=== PATIENT | male | born 1960 | race American Indian/Alaskan Native ===

== ENCOUNTER 2018-06-09 10:51 | Emergency (ER) | payer MEDICAID, OTHER ==
[2018-06-09 10:57] VITALS: RESP 18; TEMP 97.4; O2SAT 100; BMI 28.7
[2018-06-09 12:57] LABS: BASO % 0.4 % (0.0-2.0); EOS # 0.2 K/uL (0.0-0.7); EOS % 2.6 % (0.0-4.0); HEMOGLOBIN 10.7 g/dL (12.0-18.0); LYMPH % 30.9 % (20.0-40.0); MEAN CELL VOLUME 87.3 fl (80.0-94.0); MEAN CORPUSCULAR HEMOGLOBIN 28.6 pg (27.0-31.0); MEAN CORPUSCULAR HGB CONC 32.8 g/dL (33.0-37.0); MEAN PLATELET VOLUME 8.2 fl (7.2-11.7); MONO # 0.5 K/uL (0.0-0.8); MONO % 8.3 % (0.0-10.0); NEUT # 3.7 K/uL (1.8-7.0); NEUT % 57.8 % (50.0-75.0); NRBC % 0.1 % (0.0-0.0); RBC 3.73 Mil/uL (4.40-5.90); RED CELL DISTRIBUTION WIDTH 15.3 % (11.5-14.5); WHITE BLOOD COUNT 6.4 K/uL (4.8-10.8)
[2018-06-09 14:10] LABS: ALB/GLOB RATIO 1.1 (1.0-2.1); ALBUMIN 3.9 g/dL (3.5-5.0); ALT/SGPT 18 U/L (21-72); AST/SGOT 20 U/L (17-59); BLOOD UREA NITROGEN 7 mg/dl (9-20); CALCIUM 9.4 mg/dL (8.4-10.2); GFR NON-AFRICAN AMERICAN > 60; LIPASE 63 U/L (23-300)
--- NOTE | 2018-06-09 15:14 | ED PDOC ---
HPI: General Adult Time Seen by Provider: 06/09/18 11:05 Chief Complaint (Nursing): Abdominal Pain Chief Complaint (Provider): g-tube removal History Per: Patient History/Exam Limitations: no limitations Onset/Duration Of Symptoms: Days Current Symptoms Are (Timing): Still Present Additional Complaint(s): 57 y/o male presents to the ED with requests to remove his G-tube. Patient is a poor historian but admits to being homeless. Patient states he no longer uses his g-tube. Patient is unclear as to where and why it was placed. PMD: no provider Past Medical History Reviewed: Historical Data, Nursing Documentation, Vital Signs Vital Signs: Last Vital Signs Temp 97.4 F L 06/09/18 10:57 Pulse 63 06/09/18 10:57 Resp 18 06/09/18 10:57 BP 149/91 H 06/09/18 10:57 Pulse Ox 100 06/09/18 10:57 - Medical History PMH: No Chronic Diseases - Surgical History Surgical History: No Surg Hx - Family History Family History: States: Unknown Family Hx - Home Medications Home Medications: Ambulatory Orders Medication Instructions Recorded Famotidine [Pepcid] 20 mg PO DAILY #20 tab 06/09/18 - Allergies Allergies/Adverse Reactions: Allergies Allergy/AdvReac Type Severity Reaction Status Date / Time No Known Allergies Allergy Verified 06/09/18 12:18 Review of Systems ROS Statement: Except As Marked, All Systems Reviewed And Found Negative Constitutional: Positive for: Other (g-tuber removal) Physical Exam - Reviewed Nursing Documentation Reviewed: Yes Vital Signs Reviewed: Yes - Physical Exam Appears: Positive for: No Acute Distress (but noted to have poor hygiene) Cardiovascular/Chest: Negative for: Tachycardia Respiratory: Positive for: Normal Breath Sounds. Negative for: Respiratory Distress Gastrointestinal/Abdominal: Positive for: Other (G0tube inplace without tenderness, erythema or discharge from site) Neurological/Psych: Positive for: Awake, Alert, Oriented (x3). Negative for: Motor/Sensory Deficits - Laboratory Results Result Diagrams: 06/09/18 12:45 06/09/18 13:18 Lab Results: Total Bilirubin 0.2 mg/dl (0.2-1.3) 06/09/18 13:18 AST 20 U/L (17-59) 06/09/18 13:18 ALT 18 U/L (21-72) L 06/09/18 13:18 Alkaline Phosphatase 92 U/L (38-126) 06/09/18 13:18 Total Protein 7.4 G/DL (6.3-8.2) 06/09/18 13:18 Albumin 3.9 g/dL (3.5-5.0) 06/09/18 13:18 Globulin 3.5 gm/dL (2.2-3.9) 06/09/18 13:18 Albumin/Globulin Ratio 1.1 (1.0-2.1) 06/09/18 13:18 Lipase 63 U/L (23-300) 06/09/18 13:18 - ECG O2 Sat by Pulse Oximetry: 100 (RA) Pulse Ox Interpretation: Normal Medical Decision Making Medical Decision Making: Time: 1217 Plan: -- EKG -- Alcohol Serum -- CMP -- Lipase -- CBC with Differentials Time: 145 Plan: -- Aspirin 300 mg PO Time: 1522 -- Labs reviewed with no acute abnormalities. Patient tolerated PO while in the ED. -- Patient requires further history to ascertain whether it is appropriate to remove G-Tube. Complain is not emergent. -- Patient will be referred to clinic for further follow up. Patient is stable for discharge while in the ER. Scribe Attestation: Documented by Ruby Carl, acting as a scribe Alex Marroquin DO. Provider Scribe Attestation: All medical record entries made by the Scribe were at my direction and personally dictated by me. I have reviewed the chart and agree that the record accurately reflects my personal performance of the history, physical exam, medical decision making, and the department course for this patient. I have also personally directed, reviewed, and agree with the discharge instructions and disposition. Disposition - Clinical Impression Clinical Impression: Abdominal discomfort, Gastrostomy tube in place - Patient ED Disposition Is Patient to be Admitted: No Counseled Patient/Family Regarding: Studies Performed, Diagnosis, Need For Followup - Disposition Referrals: [facility] [Outside] Disposition: Routine/Home Disposition Time: 15:22 Condition: STABLE Additional Instructions: Followup with clinic and GI doctor for further testing and possible removal of f eeding tube if no longer needed. Prescriptions: Famotidine [Pepcid] 20 mg PO DAILY #20 tab Instructions: Acute Abdomen (Belly Pain), Adult (DC), Gastrostomy, Permanent and Temporary (DC) Forms: [employer] (German)
--- NOTE | 2018-06-09 17:33 | CARD ---
APPROVED REPORT Date of service: 06/09/2018 EKG Measurement Heart [id number] <Conclusion> Normal sinus rhythm Normal ECG
[2018-06-09 19:53] VITALS: BP 142/83; PULSE 66
== END 2018-06-09 15:15 | disposition home or self-care (01) ==
LOC: H.ER 10:51
DX: R10.9 Unspecified abdominal pain (principal); Z59.0 Homelessness
CPT/HCPCS: 80053; 83690; 85025; 93005; 99283; G0480

== ENCOUNTER 2018-06-10 07:11 | Emergency (ER) | payer MEDICAID, OTHER ==
[2018-06-10 07:20] VITALS: BMI 29.5
[2018-06-10 07:23] VITALS: O2SAT 99
--- NOTE | 2018-06-10 07:34 | ED PDOC ---
HPI: Abdomen Time Seen by Provider: 06/10/18 07:13 Chief Complaint (Nursing): GI Problem Chief Complaint (Provider): GI Problem History Per: Patient History/Exam Limitations: no limitations Onset/Duration Of Symptoms: Days Current Symptoms Are (Timing): Still Present Additional Complaint(s): 57 y/o undomiciled male with a PMHx of HTN presents to the ED for evaluation of abdominal pain around G-Tube site, onset a couple of days ago. Patient describes pain as "painful". Patient is unclear as to where it was placed. When asked why it was placed, patient reported it was due to kidney failure a couple of months ago. Patient states he is currently eating normally and no longer need the G- tube, requesting it to be removed. Otherwise, patient denies any other surgerie s, nausea, vomiting, diarrhea and dysuria. Of note, patient presented to this ER yesterday for the same compliant where blood work was done which resulted negative. Patient was discharged home with instructions to follow up with the [facility]. PMD: no provider Past Medical History Reviewed: Historical Data, Nursing Documentation, Vital Signs Vital Signs: Last Vital Signs Temp 97.8 F 06/10/18 07:20 Pulse 102 H 06/10/18 07:20 Resp 17 06/10/18 07:20 BP 162/108 H 06/10/18 07:20 Pulse Ox 99 06/10/18 07:20 - Medical History PMH: HTN (sometimes takes medication) - Surgical History Other surgeries: feeding tube - Family History Family History: States: Unknown Family Hx - Living Arrangements Living Arrangements: Other (in senior care) - Social History Current smoker - smoking cessation education provided: No Alcohol: None Drugs: Denies - Home Medications Home Medications: Ambulatory Orders Medication Instructions Recorded Famotidine [Pepcid] 20 mg PO DAILY #20 tab 06/09/18 - Allergies Allergies/Adverse Reactions: Allergies Allergy/AdvReac Type Severity Reaction Status Date / Time No Known Allergies Allergy Verified 06/09/18 12:18 Review of Systems ROS Statement: Except As Marked, All Systems Reviewed And Found Negative Gastrointestinal: Positive for: Abdominal Pain (around G-tube site mild). Negative for: Nausea, Vomiting, Diarrhea Genitourinary Male: Positive for: Frequency, Incontinence. Negative for: Dysuria Physical Exam - Reviewed Nursing Documentation Reviewed: Yes Vital Signs Reviewed: Yes - Physical Exam Appears: Positive for: No Acute Distress (poor hygiene) Head Exam: Positive for: ATRAUMATIC, NORMOCEPHALIC Skin: Positive for: Normal Color, Warm, Dry Eye Exam: Positive for: Normal appearance, EOMI, PERRL Neck: Positive for: Normal, Painless ROM Cardiovascular/Chest: Positive for: Regular Rate, Rhythm. Negative for: Murmur Respiratory: Positive for: Normal Breath Sounds. Negative for: Respiratory Distress Gastrointestinal/Abdominal: Positive for: Soft, Tenderness (minimal tenderness around G-tube site.), Other (G-tube in place with no erythema, induration or fluctuance) Back: Positive for: Normal Inspection. Negative for: L CVA Tenderness, R CVA Tenderness, Vertebral Tenderness Extremity: Positive for: Normal ROM. Negative for: Deformity Neurological/Psych: Positive for: Awake, Alert, Oriented. Negative for: Motor/Sensory Deficits - ECG O2 Sat by Pulse Oximetry: 99 (RA) Pulse Ox Interpretation: Normal - CT Scan/US ct Other Rad Studies (CT/US): Read By Radiologist Other Rad Interpretation: no acute - Progress ED Course And Treament: 1034: Stable. AAOx3. Pain free. Sleeping through stay. Fu with pcp. Medical Decision Making Medical Decision Making: Time: 732 Impression: Abdominal Pain Plan: -- CT Abd/Pelvis w/o PO or IV Contrast Scribe Attestation: Documented by Ruby Carl, acting as a scribe Pierce Love MD. Provider Scribe Attestation: All medical record entries made by the Scribe were at my direction and personally dictated by me. I have reviewed the chart and agree that the record accurately reflects my personal performance of the history, physical exam, medical decision making, and the department course for this patient. I have also personally directed, reviewed, and agree with the discharge instructions and disposition. Disposition - Clinical Impression Clinical Impression: Abdominal pain, Feeding by G-tube - Patient ED Disposition Is Patient to be Admitted: No Counseled Patient/Family Regarding: Studies Performed, Diagnosis, Need For Followup - Disposition Referrals: [facility] [Outside] - 06/13/18 Disposition: Routine/Home Disposition Time: 10:35 Condition: STABLE Instructions: Stomach Ache and Stomach Upset, How to Care for Your PEG Tube
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
[2018-06-10 11:52] VITALS: BP 149/97; PULSE 99; RESP 18; TEMP 98
== END 2018-06-10 11:05 | disposition home or self-care (01) ==
LOC: H.ER 07:11
DX: R10.9 Unspecified abdominal pain (principal); Z43.1 Encounter for attention to gastrostomy; I10 Essential (primary) hypertension

== ENCOUNTER 2018-06-11 08:25 | Emergency (ER) | payer MEDICAID, OTHER ==
[2018-06-11 08:30] VITALS: BMI 30.1
[2018-06-11 09:58] LABS: URINE BILIRUBIN NEGATIVE (NEGATIVE); URINE BLOOD NEGATIVE (NEGATIVE); URINE CLARITY CLEAR (Clear); URINE COLOR STRAW (YELLOW); URINE GLUCOSE (UA) NEG (NEGATIVE); URINE LEUKOCYTE ESTERASE NEG Leu/uL (Negative); URINE PROTEIN NEGATIVE (NEGATIVE); URINE UROBILINOGEN 0.2-1.0 mg/dL (0.2-1.0)
[2018-06-11 10:22] VITALS: BP 139/106; PULSE 70; RESP 16; TEMP 97.5
[2018-06-11 10:24] VITALS: O2SAT 100
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
== END 2018-06-11 10:30 | disposition home or self-care (01) ==
LOC: H.ER 08:25
DX: R35.0 Frequency of micturition (principal); F17.200 Nicotine dependence, unspecified, uncomplicated; I10 Essential (primary) hypertension; J45.909 Unspecified asthma, uncomplicated

== ENCOUNTER 2018-06-18 07:15 | Emergency (ER) | payer SELFPAY ==
[2018-06-18 07:17] VITALS: BMI 30.4
[2018-06-18 07:19] VITALS: BP 150/97; PULSE 99; RESP 17; TEMP 98.2; O2SAT 97
--- NOTE | 2018-06-18 08:50 | ED PDOC ---
HPI: Back Time Seen by Provider: 06/18/18 07:26 Chief Complaint (Nursing): Back Pain Chief Complaint (Provider): back pain History Per: Patient History/Exam Limitations: no limitations Current Symptoms Are (Timing): Still Present Quality Of Discomfort: Unable To Describe Severity: Mild Previous Symptoms: Back Pain Associated Symptoms: None Exacerbating Factor(s): Movement, Standing Additional Complaint(s): 57yo male c/o low back pain ongoing for several months, denies urinary symptoms, fever, trauma or fall. Has PEG tube in place, again requesting it be removed, states was placed at [facility] because his kidneys were failing, unclear history. Eating PO now. Prior charts reviewed, recently seen again for abd discomfort, had CT abd pelv and labwork. Past Medical History Reviewed: Historical Data, Nursing Documentation, Vital Signs Vital Signs: Last Vital Signs Temp 98.2 F 06/18/18 07:17 Pulse 99 H 06/18/18 07:17 Resp 17 06/18/18 07:17 BP 150/97 H 06/18/18 07:17 Pulse Ox 97 06/18/18 07:17 - Medical History PMH: Asthma, HTN (sometimes takes medication) Denies: Chronic Kidney Disease - Surgical History Surgical History: Hernia Repair - Family History Family History: States: Unknown Family Hx - Living Arrangements Living Arrangements: Other - Home Medications Home Medications: Ambulatory Orders Medication Instructions Recorded Famotidine [Pepcid] 20 mg PO DAILY #20 tab 06/09/18 - Allergies Allergies/Adverse Reactions: Allergies Allergy/AdvReac Type Severity Reaction Status Date / Time No Known Allergies Allergy Verified 06/09/18 12:18 Review of Systems Constitutional: Negative for: Fever Cardiovascular: Negative for: Chest Pain Respiratory: Negative for: Shortness of Breath Gastrointestinal: Negative for: Abdominal Pain Genitourinary Male: Negative for: Dysuria Musculoskeletal: Positive for: Back Pain. Negative for: Arm Pain, Leg Pain Neurological: Negative for: Weakness Psych: Negative for: Suicidal ideation Physical Exam - Reviewed Nursing Documentation Reviewed: Yes Vital Signs Reviewed: Yes - Physical Exam Appears: Positive for: Non-toxic (poor hygiene), No Acute Distress Head Exam: Positive for: ATRAUMATIC, NORMAL INSPECTION, NORMOCEPHALIC Skin: Positive for: Normal Color, Warm, DRY Eye Exam: Positive for: EOMI, Normal appearance, PERRL ENT: Positive for: Normal ENT Inspection Neck: Positive for: Painless ROM Cardiovascular/Chest: Positive for: Regular Rate, Rhythm Respiratory: Negative for: Respiratory Distress Gastrointestinal/Abdominal: Positive for: Normal Exam, Soft, Other (Gtube in place) Back: Positive for: Decreased ROM, Muscle Spasm, Other (no warmth or erythema). Negative for: Vertebral Tenderness Extremity: Positive for: Normal ROM. Negative for: Deformity, Swelling Neurological/Psych: Positive for: Awake, Alert, Normal Tone, Oriented - ECG O2 Sat by Pulse Oximetry: 97 Medical Decision Making Medical Decision Making: pt also requesting nonurgent screening labs be performed, explained these are outpatient tests for clinic, not emergency department check UDip, give tylenol for pain patient sleeping half on and off bed when walked into room. ambulated without difficulty into room 11am improved, ambulating, needs outpatient GI followup for PEG removal patient walked out of ED prior to discharge paperwork, refused to give Urine sample./ Explained outpatient screening labs need complete at lab via clinic, no indication for emergency draw. Disposition - Clinical Impression Clinical Impression: Back pain - Patient ED Disposition Is Patient to be Admitted: No - Disposition Disposition: Left W/O Treatment Disposition Time: 11:40 Condition: STABLE Forms: [employer] (Belarusian)
== END 2018-06-18 11:00 | disposition left against medical advice (07) ==
LOC: H.ER 07:15
DX: M54.9 Dorsalgia, unspecified (principal); I10 Essential (primary) hypertension

== ENCOUNTER 2018-06-22 07:12 | Emergency (ER) | payer SELFPAY ==
[2018-06-22 07:26] VITALS: PULSE 77; RESP 16; TEMP 98.2; O2SAT 98
[2018-06-22 07:27] VITALS: BMI 31.3
--- NOTE | 2018-06-22 08:43 | ED PDOC ---
HPI: Back Time Seen by Provider: 06/22/18 07:20 Chief Complaint (Nursing): Back Pain Chief Complaint (Provider): Back Pain History Per: Patient History/Exam Limitations: no limitations Onset/Duration Of Symptoms: Days Current Symptoms Are (Timing): Still Present Additional Complaint(s): 57 year old male with a past medical history of hypertension and asthma who is presenting to the ED for evaluation of back pain ongoing for 2 days. Patient states that he lives in the residential and has a history of back pain. He denies taking any medications prior to arrival and also denies any numbness, weakness, urinary symptoms, or fall/injury. PMD: none provided Past Medical History Reviewed: Historical Data, Nursing Documentation, Vital Signs Vital Signs: Last Vital Signs Temp 98.2 F 06/22/18 07:26 Pulse 77 06/22/18 07:26 Resp 16 06/22/18 07:26 BP 151/100 H 06/22/18 07:26 Pulse Ox 98 06/22/18 07:26 - Medical History PMH: Asthma, HTN (sometimes takes medication) Denies: Chronic Kidney Disease - Surgical History Surgical History: Hernia Repair - Family History Family History: States: Unknown Family Hx - Social History Current smoker - smoking cessation education provided: No Alcohol: None Drugs: Denies - Home Medications Home Medications: Ambulatory Orders Medication Instructions Recorded No Known Home Med 06/29/18 - Allergies Allergies/Adverse Reactions: Allergies Allergy/AdvReac Type Severity Reaction Status Date / Time No Known Allergies Allergy Verified 06/29/18 21:30 Review of Systems ROS Statement: Except As Marked, All Systems Reviewed And Found Negative Genitourinary Male: Negative for: Dysuria, Frequency Musculoskeletal: Positive for: Back Pain Neurological: Negative for: Weakness, Numbness Physical Exam - Reviewed Nursing Documentation Reviewed: Yes Vital Signs Reviewed: Yes - Physical Exam Appears: Positive for: Non-toxic, No Acute Distress Head Exam: Positive for: ATRAUMATIC, NORMAL INSPECTION, NORMOCEPHALIC Skin: Positive for: Normal Color, Warm, DRY Gastrointestinal/Abdominal: Positive for: Normal Exam, Soft. Negative for: Tenderness Back: Positive for: Normal Inspection. Negative for: L CVA Tenderness, R CVA Tenderness, Vertebral Tenderness, Other (hematoma ) Extremity: Positive for: Normal ROM. Negative for: Deformity, Swelling Neurological/Psych: Positive for: Awake, Alert, Normal Tone, Oriented. Negative for: Motor/Sensory Deficits - ECG O2 Sat by Pulse Oximetry: 98 (RA) Pulse Ox Interpretation: Normal Medical Decision Making Medical Decision Making: Time: 8:24 Plan: --Tylenol 650 mg PO 9:33 Patient is feeling better and will be discharged home. Scribe Attestation: Documented by Anaya Dolan, acting as a scribe for Naima Carrillo MD. Provider Scribe Attestation: All medical record entries made by the Scribe were at my direction and personally dictated by me. I have reviewed the chart and agree that the record accurately reflects my personal performance of the history, physical exam, medical decision making, and the department course for this patient. I have also personally directed, reviewed, and agree with the discharge instructions and disposition. Disposition - Clinical Impression Clinical Impression: Chronic back pain - Patient ED Disposition Is Patient to be Admitted: No Counseled Patient/Family Regarding: Studies Performed, Diagnosis, Need For Followup - Disposition Referrals: FAMILY PROVIDER,NO [Primary Care Provider] - Disposition: Routine/Home Disposition Time: 09:33 Condition: IMPROVED Additional Instructions: follow up as an outpatient for chronic back pain take tylenol or motrin for pain as needed return to the ED with any worsening or concerning symptoms Instructions: Chronic Pain (DC) Forms: [employer] (German)
[2018-06-22 09:53] VITALS: BP 137/96
== END 2018-06-22 10:11 | disposition home or self-care (01) ==
LOC: H.ER 07:12 → SUPCPDRO 07:12 → H.ER 10:11
DX: M54.9 Dorsalgia, unspecified (principal)